=== PATIENT | female | born 1980 | race Caucasian/White ===

== ENCOUNTER 2021-05-04 18:53 | Emergency (ER) | payer BC, SELFPAY ==
[~2021-05-04] VITALS: Ht 170.2 cm; Wt 73.9 kg
[~2021-05-04 18:53] MED LIST: PREN1TAB49 PO
[2021-05-04 19:33] VITALS: BP_SYST 124
--- NOTE | 2021-05-04 20:16 | NUR ---
Pt brought by self, A&O4, pt presents to ER with cough /congestion and weakness, pt states she had the pfizer vaccine last week and symptoms started, pt afebrile, skin pink and warm, cap refill <3.
--- NOTE | 2021-05-04 20:30 | NUR ---
Dr Whitley evaluating patient at bedside
--- NOTE | 2021-05-04 21:04 | NUR ---
Patient given written and verbal discharge instructions and verbalizes understanding. ER MD discussed with patient the results and treatment provided. Patient in stable condition. ID arm band removed. No Rx given. Patient educated on pain management and to follow up with PMD. Pain Scale 2/10. Opportunity for questions provided and answered. Medication side effect fact sheet provided.
[2021-05-04 21:05] VITALS: BP_SYST 124
== END 2021-05-04 21:05 | disposition home or self-care (01) ==
LOC: SED 18:53
DX: B34.9 Viral infection, unspecified (principal); Z88.0 Allergy status to penicillin; Z88.8 Allergy status to other drugs, medicaments and biological substances; Z79.899 Other long term (current) drug therapy; Z20.822 Contact with and (suspected) exposure to COVID-19
CPT/HCPCS: 36415; 99283

== ENCOUNTER 2021-08-21 10:16 | Emergency (ER) | payer BC, SELFPAY ==
[~2021-08-21] VITALS: Ht 170.2 cm; Wt 77.1 kg
[2021-08-21 10:43] VITALS: BP_SYST 118
--- NOTE | 2021-08-21 10:49 | NUR ---
TRIAGED IN TENT
--- NOTE | 2021-08-21 11:00 | NUR ---
PT HAS BEEN SWABBED FOR COVID 19.
--- NOTE | 2021-08-21 11:02 | NUR ---
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 SHE STATED "I AM NOT GOING TO WORK".
--- NOTE | 2021-08-21 11:05 | NUR ---
MD TARIQ AT BEDSIDE ASSESSING PT.
--- NOTE | 2021-08-21 11:36 | NUR ---
RN HAS UPDATED PT ON HER POSITIVE COVID 19 STATUS, AND HER . WILL CONTINUE TAKING CARE OF HER DESPITE THE RESULTS, THEY STATED.
--- NOTE | 2021-08-21 12:30 | NUR ---
Patient given written and verbal discharge instructions and verbalizes understanding. ER MD discussed with patient the results and treatment provided. Patient in stable condition. ID arm band removed. . Patient educated on pain management and to follow up with PMD. Pain Scale . Opportunity for questions provided and answered. Medication side effect fact sheet provided.
[2021-08-21 12:45] VITALS: BP_SYST 121
== END 2021-08-21 12:18 | disposition home or self-care (01) ==
LOC: SED 10:16
DX: U07.1 COVID-19 (principal); Z88.8 Allergy status to other drugs, medicaments and biological substances; Z79.899 Other long term (current) drug therapy
CPT/HCPCS: 36415; 71045; 93005; 99285

== ENCOUNTER 2021-09-14 05:48 | Emergency (ER) | payer BC, SELFPAY ==
[~2021-09-14] VITALS: Ht 170.2 cm; Wt 74.8 kg
--- NOTE | 2021-09-14 05:48 | NUR ---
BENJAMIN Rivera in tent examining patient.
[2021-09-14 05:50] VITALS: BP_SYST 142
--- NOTE | 2021-09-14 05:50 | NUR ---
Patient presents to the ER c/o sinus congestion, chest congestion, cough, body aches and fever. She said she tested positive for COVID-19 08/21/2021. Patient states that she was sick for 11 days and completely recovered and returned back to her normal. Patient with no chest pain or respiratory distress. There is no dizziness or syncope. Patient AAO x 4, breathing easy, respirations even and unlabored. Patient ambulates with steady gait. Awaiting ER MD to natasha.
[2021-09-14] MEDS ORDERED: TRIA10.8 NS (06:24)
[2021-09-14] MEDS ORDERED: AZIT-93 PO (06:24)
[2021-09-14] MEDS ORDERED: FLUT16SP16 NS ×2 (06:24)
[2021-09-14 06:38] VITALS: BP_SYST 140
--- NOTE | 2021-09-14 06:38 | NUR ---
Patient given written and verbal discharge instructions and verbalizes understanding. ER MD discussed with patient the care provided. Patient in stable condition. ID arm band removed. Rx of azithromycin and Nasacort sent to pharmacy of choice. Patient educated on pain management and to follow up with PMD. Opportunity for questions provided and answered. Medication side effect fact sheet provided.
== END 2021-09-14 06:38 | disposition home or self-care (01) ==
LOC: SED 05:48
DX: J01.10 Acute frontal sinusitis, unspecified (principal); J01.00 Acute maxillary sinusitis, unspecified; Z88.0 Allergy status to penicillin; Z88.8 Allergy status to other drugs, medicaments and biological substances; Z79.899 Other long term (current) drug therapy; Z20.822 Contact with and (suspected) exposure to COVID-19
CPT/HCPCS: 71045; 99284; C9803; U0003

== ENCOUNTER 2022-04-08 22:04 | Emergency (ER) | payer BC ==
[~2022-04-08] VITALS: Ht 170.2 cm; Wt 76.7 kg
[~2022-04-08 22:04] MED LIST changes: +AZIT-93 PO; +TRIA10.8 NS
[2022-04-08 22:13] VITALS: BP_SYST 141
--- NOTE | 2022-04-08 22:18 | NUR ---
PATIENT SEEN 10 DAYS AGO FOR DENTAL PAIN AND GIVEN ANTBIOTICS AND PAIN MEDICATION WITHOUT RELIEF.
--- NOTE | 2022-04-08 23:16 | NUR ---
41 yr old female AOX4 with complaint of toothache on the left side of her mouth. pt reports not being able to have it fixed at this time, but she states she is in alot of pain. MD Boudreaux at the bedside
[2022-04-08] MEDS ORDERED: IBUPROFEN 600 MG TABLET PO ONE (23:30)
[2022-04-08] MEDS ORDERED: HYDROcodone/ACETAMIN 5-325 MG TAB (NORCO/ VICODIN) PO ONE (23:30)
[2022-04-08] MEDS ORDERED: HYDR-3917 PO (23:50)
--- NOTE | 2022-04-09 00:05 | NUR ---
pt discharged with homecare instructions and encouraged to follow up with a dentist. pt verbalized understanding. pt discharged in stable condition
== END 2022-04-08 23:05 | disposition home or self-care (01) ==
LOC: SED 22:04
DX: K04.7 Periapical abscess without sinus (principal); K08.89 Other specified disorders of teeth and supporting structures; Z88.0 Allergy status to penicillin; Z88.1 Allergy status to other antibiotic agents; Z79.899 Other long term (current) drug therapy
CPT/HCPCS: 99283

== ENCOUNTER 2023-05-01 18:34 | Emergency (ER) | payer BC, MEDICAID ==
[~2023-05-01] VITALS: Ht 170.2 cm; Wt 69.4 kg
[~2023-05-01 18:34] MED LIST changes: +HYDR-3917 PO
[2023-05-01 18:45] VITALS: BP_SYST 148; PULSE 66; RESP 18; TEMP 98.3; O2SAT 98
[2023-05-01] MEDS ORDERED: TRANEXAMIC ACID 1,000 MG/10 ML VIAL IV ONE (19:00)
[2023-05-01] MEDS ORDERED: HYDROcodone/ACETAMIN 10-325 MG TAB PO ONE (19:00)
[2023-05-01 19:45] LABS: BASOPHILS # (AUTO) 0.1 K/uL (0.0-0.2); BASOPHILS % (AUTO) 0.7 % (0.0-2.0); EOSINOPHILS # (AUTO) 0.3 K/uL (0.0-0.4); EOSINOPHILS % (AUTO) 3.5 % (0.0-4.0); HEMATOCRIT 44.6 % (36-48); HEMOGLOBIN 14.8 g/dL (12.0-16.0); LYMPHOCYTES # (AUTO) 3.2 K/uL (1.0-5.5); LYMPHOCYTES % (AUTO) 35.1 % (20.5-51.5); MEAN CORPUSCULAR HEMOGLOBIN 30 pg (27-31); MEAN CORPUSCULAR HGB CONC 33 % (32-36); MEAN CORPUSCULAR VOLUME 90 fL (79.0-98.0); MONOCYTES # (AUTO) 0.6 K/uL (0.0-1.0); MONOCYTES % (AUTO) 6.9 % (1.7-9.3); NEUTROPHILS % (AUTO) 53.8 % (40.0-70.0); PLATELET COUNT (AUTO) 280 K/uL (130-430); RED BLOOD CELL COUNT(AUTO) 4.95 MIL/uL (4.2-6.2); RED CELL DISTRIBUTION WIDTH 13.5 % (9.0-15.0); WHITE BLOOD COUNT (AUTO) 9.2 K/uL (4.8-10.8)
[2023-05-01 19:59] LABS: CALCIUM 8.3 mg/dL (8.4-11.0); CREATININE 0.56 mg/dL (0.55-1.30); POTASSIUM 3.5 mmol/L (3.5-5.1)
[2023-05-01 20:01] LABS: PROTHROMBIN TIME 10.5 SECS (9.5-12.5)
[2023-05-01 20:04] LABS: ALBUMIN 3.6 g/dL (3.4-4.8); TOTAL BILIRUBIN 0.2 mg/dL (0.0-1.0); TOTAL PROTEIN, SERUM 7.1 g/dL (6.4-8.3)
[2023-05-01 21:06] VITALS: BP_SYST 140; PULSE 60; RESP 16; TEMP 98.3; O2SAT 99
== END 2023-05-01 21:06 | disposition home or self-care (01) ==
LOC: SED 18:34
DX: R58 Hemorrhage, not elsewhere classified (principal); Z88.0 Allergy status to penicillin; Z88.1 Allergy status to other antibiotic agents; Z85.828 Personal history of other malignant neoplasm of skin; Z79.899 Other long term (current) drug therapy
CPT/HCPCS: 99283; 96374; 80053; 85025; 85610; 85730; 36415; J3490

== ENCOUNTER 2023-07-07 07:52 | Emergency (ER) | payer MEDICAID, OTHER ==
[~2023-07-07] VITALS: Ht 170.2 cm; Wt 72.6 kg
[2023-07-07 08:02] VITALS: BP_SYST 126; PULSE 89; RESP 16; TEMP 97.8; O2SAT 98
[2023-07-07 08:41] LABS: INFLUENZA TYPE A Negative (NEGATIVE); INFLUENZA TYPE B NEGATIVE (NEGATIVE)
[2023-07-07 08:43] LABS: ACETONE, SERUM NEGATIVE (NEGATIVE)
[2023-07-07 09:47] LABS: CREATININE 0.83 mg/dL (0.55-1.30); POTASSIUM 3.6 mmol/L (3.5-5.1)
[2023-07-07 09:52] LABS: ALBUMIN 3.3 g/dL (3.4-4.8); TOTAL BILIRUBIN 0.3 mg/dL (0.0-1.0); TOTAL PROTEIN, SERUM 7.3 g/dL (6.4-8.3)
[2023-07-07 09:57] LABS: BASOPHILS % (AUTO) 0.5 % (0.0-2.0); EOSINOPHILS # (AUTO) 0.2 K/uL (0.0-0.4); EOSINOPHILS % (AUTO) 2.5 % (0.0-4.0); HEMATOCRIT 43.2 % (36-48); LYMPHOCYTES # (AUTO) 2.2 K/uL (1.0-5.5); LYMPHOCYTES % (AUTO) 22.4 % (20.5-51.5); MEAN CORPUSCULAR HEMOGLOBIN 29 pg (27-31); MEAN CORPUSCULAR HGB CONC 32 % (32-36); MEAN CORPUSCULAR VOLUME 90 fL (79.0-98.0); MONOCYTES # (AUTO) 0.8 K/uL (0.0-1.0); MONOCYTES % (AUTO) 8.3 % (1.7-9.3); NEUTROPHILS # (AUTO) 6.4 K/uL (1.8-7.7); NEUTROPHILS % (AUTO) 66.3 % (40.0-70.0); PLATELET COUNT (AUTO) 292 K/uL (130-430); RED BLOOD CELL COUNT(AUTO) 4.79 MIL/uL (4.2-6.2); RED CELL DISTRIBUTION WIDTH 12.9 % (9.0-15.0); WHITE BLOOD COUNT (AUTO) 9.7 K/uL (4.8-10.8)
[2023-07-07] MEDS ORDERED: ALBMDI INH (10:15)
[2023-07-07] MEDS ORDERED: DIPH25TA62 PO (10:15)
[2023-07-07] MEDS ORDERED: ONDA-8 TL (10:15)
[2023-07-07 10:23] VITALS: BP_SYST 130; PULSE 79; RESP 18; TEMP 98.1; O2SAT 99
== END 2023-07-07 10:22 | disposition home or self-care (01) ==
LOC: SED 07:52
DX: J40 Bronchitis, not specified as acute or chronic (principal); R53.1 Weakness; R05.9 Cough, unspecified; R11.2 Nausea with vomiting, unspecified; Z88.0 Allergy status to penicillin; Z88.1 Allergy status to other antibiotic agents; Z85.828 Personal history of other malignant neoplasm of skin; Z79.899 Other long term (current) drug therapy; Z20.822 Contact with and (suspected) exposure to COVID-19
CPT/HCPCS: 36415; 71045; 80053; 82009; 83605; 83880; 84484; 85025; 99284

== ENCOUNTER 2024-03-07 11:06 | Emergency (ER) | payer OTHER ==
[~2024-03-07] VITALS: Ht 167.6 cm; Wt 73.9 kg
[~2024-03-07 11:06] MED LIST changes: +ALBMDI INH; +DIPH25TA62 PO; +ONDA-8 TL
[2024-03-07 11:18] VITALS: BP_SYST 111; PULSE 85; RESP 22; TEMP 98.3; O2SAT 98
[2024-03-07] MEDS ORDERED: CEPH250C PO (11:39)
[2024-03-07] MEDS ORDERED: LIDOCAINE MPF 1% 50 MG/5 ML AMP INJ ONE (11:45)
[2024-03-07] MEDS: cephALEXin 500 MG CAPSULE PO ONE (12:59)
[2024-03-07] MEDS: ACETAMINOPHEN 325 MG TABLET PO ONE (12:59)
[2024-03-07 13:37] VITALS: BP_SYST 108; PULSE 80; RESP 20; TEMP 98.8; O2SAT 98
== END 2024-03-07 13:35 | disposition home or self-care (01) ==
LOC: SED 11:06
DX: S01.511A Laceration without foreign body of lip, initial encounter (principal); S09.90XA Unspecified injury of head, initial encounter; Z85.828 Personal history of other malignant neoplasm of skin; Z88.0 Allergy status to penicillin; Z88.1 Allergy status to other antibiotic agents; Z79.899 Other long term (current) drug therapy; Z79.2 Long term (current) use of antibiotics; W01.0XXA Fall on same level from slipping, tripping and stumbling without subsequent striking against object, initial encounter; Y93.89 Activity, other specified; Y92.89 Other specified places as the place of occurrence of the external cause; Y99.8 Other external cause status
CPT/HCPCS: 99283; J2001

== ENCOUNTER 2024-06-12 16:32 | Emergency (ER) | payer OTHER ==
[~2024-06-12] VITALS: Ht 160 cm; Wt 72.6 kg
[~2024-06-12 16:32] MED LIST changes: +CEPH250C PO
[2024-06-12 16:34] VITALS: BP_SYST 137; PULSE 69; RESP 20; TEMP 98.3; O2SAT 100
[2024-06-12 17:32] LABS: BASOPHILS % (AUTO) 0.5 % (0.0-2.0); EOSINOPHILS # (AUTO) 0.3 K/uL (0.0-0.4); EOSINOPHILS % (AUTO) 3.3 % (0.0-4.0); HEMATOCRIT 42.5 % (36-48); HEMOGLOBIN 14.5 g/dL (12.0-16.0); LYMPHOCYTES # (AUTO) 2.3 K/uL (1.0-5.5); MEAN CORPUSCULAR HEMOGLOBIN 30 pg (27-31); MEAN CORPUSCULAR HGB CONC 34 % (32-36); MEAN CORPUSCULAR VOLUME 88 fL (79.0-98.0); MONOCYTES # (AUTO) 0.6 K/uL (0.0-1.0); MONOCYTES % (AUTO) 6.8 % (1.7-9.3); NEUTROPHILS # (AUTO) 5.1 K/uL (1.8-7.7); NEUTROPHILS % (AUTO) 61.4 % (40.0-70.0); PLATELET COUNT (AUTO) 261 K/uL (130-430); RED BLOOD CELL COUNT(AUTO) 4.82 MIL/uL (4.2-6.2); RED CELL DISTRIBUTION WIDTH 13.3 % (9.0-15.0); WHITE BLOOD COUNT (AUTO) 8.3 K/uL (4.8-10.8)
[2024-06-12 17:46] LABS: ANION GAP 7 (5-15); CALCIUM 9.1 mg/dL (8.4-11.0); CARBON DIOXIDE 27 mmol/L (23-29); CHLORIDE 106 mmol/L (98-107); CREATININE 0.85 mg/dL (0.55-1.30); GFR AFRICAN AMERICAN 93 mL/min (>90); GLUCOSE 90 mg/dL (74-106); POTASSIUM 4.3 mmol/L (3.5-5.1); SODIUM SERUM 140 mmol/L (136-145); UREA NITROGEN, BLOOD 14 mg/dL (8-21)
[2024-06-12 18:05] LABS: GFR NON AFRICAN-AMERICAN 77 mL/min (>90)
[2024-06-12] MEDS ORDERED: FAMO40TA7 PO (19:05)
[2024-06-12 19:16] VITALS: BP_SYST 125; PULSE 72; RESP 18; TEMP 98.3; O2SAT 99
== END 2024-06-12 19:15 | disposition home or self-care (01) ==
LOC: SED 16:32
DX: K21.9 Gastro-esophageal reflux disease without esophagitis (principal); R07.89 Other chest pain; F17.200 Nicotine dependence, unspecified, uncomplicated; Z85.828 Personal history of other malignant neoplasm of skin; Z88.0 Allergy status to penicillin; Z88.1 Allergy status to other antibiotic agents; Z79.899 Other long term (current) drug therapy; Z79.2 Long term (current) use of antibiotics
CPT/HCPCS: 36415; 71045; 80048; 84484; 85025; 93005; 99285